=== PATIENT | male | born 1990 | race African-American/Black ===

== ENCOUNTER 2023-05-02 07:29 | Emergency (ER) | payer MEDICAID ==
[~2023-05-02] VITALS: Ht 172.7 cm; Wt 96.0 kg
[2023-05-02 07:39] VITALS: TEMP 98.8; O2SAT 100
[2023-05-02] MEDS ORDERED: IBUPROFEN 400MG TABLET PO ONE (08:00)
[2023-05-02] MEDS ORDERED: TETANUS, DIPHTHERIA, PERTUSSIS VAC/PF 0.5ML (>10YR OLD) IM ONE (08:00)
[2023-05-02] MEDS ORDERED: IBUP-2028 MT (10:45)
[2023-05-02] MEDS: TETANUS, DIPHTHERIA, PERTUSSIS VAC/PF 0.5ML (>10YR OLD) IM ONE (11:48)
[2023-05-02] MEDS: IBUPROFEN 400MG TABLET PO NR (11:50)
[2023-05-02 11:57] VITALS: BP 129/82; PULSE 92; RESP 16
== END 2023-05-02 12:16 | disposition home or self-care (01) ==
LOC: ER 07:29
DX: S63.501A Unspecified sprain of right wrist, initial encounter (principal); S00.511A Abrasion of lip, initial encounter; V89.2XXA Person injured in unspecified motor-vehicle accident, traffic, initial encounter; Y93.89 Activity, other specified; Y92.89 Other specified places as the place of occurrence of the external cause; Y99.8 Other external cause status
CPT/HCPCS: 29125; 73110; 90471; 90715; 99283